=== PATIENT | male | born 1975 | race African-American/Black ===

== ENCOUNTER 2016-06-17 03:37 | Inpatient (IN) | payer MEDICAID ==
[~2016-06-17] VITALS: Ht 180.3 cm; Wt 78.0 kg
[2016-06-17] MEDS ORDERED: CLONIDINE (04:06)
[2016-06-17] MEDS ORDERED: HYDRALAZINE (04:06)
[2016-06-17] MEDS ORDERED: [UNRECOGNIZED DRUG - OTHER] (04:07)
[2016-06-17] MEDS ORDERED: ASPIRIN (04:08)
[2016-06-17] MEDS ORDERED: CARVEDILOL (04:08)
[2016-06-17] MEDS ORDERED: BUMETANIDE (04:09)
[2016-06-17] MEDS ORDERED: RENA-VITE (04:10)
[2016-06-17 04:13] LABS: HEMOGLOBIN 9.7 g/dL (13.7-18.0)
[2016-06-17 04:22] LABS: BLOOD UREA NITROGEN 97 mg/dL (7-18)
[2016-06-17 04:42] LABS: ASPARTATE AMINO TRANSFERASE 23 U/L (15-37)
[2016-06-17] MEDS ORDERED: HYDROcodone/APAP 5/325 TABLET ONE (04:56)
[2016-06-17] MEDS ORDERED: HYDROcodone/APAP 5/325 TABLET PO ONE (05:00)
[2016-06-17] MEDS ORDERED: ONDANSETRON 2MG/ML, 2ML IVPush PRN (05:30)
[2016-06-17] MEDS ORDERED: ACETAMINOPHEN 325 MG TABLET PO PRN (06:00)
[2016-06-17] MEDS ORDERED: POLYETHYLENE GLYCOL 17 GM PACKET PO PRN (06:00)
[2016-06-17] MEDS ORDERED: LABETALOL 5MG/ML, 20ML IV PRN (06:00)
[2016-06-17] MEDS ORDERED: DOCUSATE 100 MG CAPSULE PO PRN (06:00)
[2016-06-17] MEDS ORDERED: BISACODYL 10 MG SUPP PR PRN (06:00)
[2016-06-17] MEDS ORDERED: ONDANSETRON ODT 4 MG PO PRN (06:00)
[2016-06-17 06:50] VITALS: BP 170/114
[2016-06-17] MEDS: HEPARIN 5,000 UNITS/ML, 1ML SQ SCH ×3 (08:30→22:00)
[2016-06-17] MEDS: NICOTINE 14MG/24 HR PATCH.TD24 TD SCH (08:30)
[2016-06-17 09:47] VITALS: BP 173/73
[2016-06-17] MEDS: HYDROcodone/APAP 5/325 TABLET PO PRN ×2 (10:24→23:13)
[2016-06-17 13:17] VITALS: BP 184/119
[2016-06-17] MEDS: LABETALOL 20 MG/4 ML IV PRN (17:18)
[2016-06-17] MEDS ORDERED: SEVE800T8 PO (17:58)
[2016-06-17] MEDS ORDERED: BUME1TAB21 PO (17:58)
[2016-06-17] MEDS ORDERED: CLON0.2T PO (17:58)
[2016-06-17] MEDS ORDERED: HYDR100T25 PO (17:58)
[2016-06-17] MEDS ORDERED: ASPI-621 PO (17:58)
[2016-06-17] MEDS ORDERED: FOLI0.8T22 PO (17:58)
[2016-06-17] MEDS ORDERED: CARV12.52 PO (17:58)
[2016-06-17] MEDS ORDERED: ISOS10TA2 PO (17:58)
[2016-06-17 19:21] VITALS: BP 167/88
[2016-06-18 05:49] VITALS: BP 173/100
[2016-06-18] MEDS: NICOTINE 14MG/24 HR PATCH.TD24 TD SCH (06:00)
[2016-06-18] MEDS: HEPARIN 5,000 UNITS/ML, 1ML SQ SCH ×3 (06:00→22:00)
[2016-06-18] MEDS: LABETALOL 20 MG/4 ML IV PRN (06:27)
[2016-06-18 07:51] VITALS: BP 175/111
[2016-06-18] MEDS: FOLIC ACID PO SCH (09:30)
[2016-06-18] MEDS: VITAMIN B COMP W C PO SCH (09:30)
[2016-06-18] MEDS: CARVEDILOL 12.5 MG TABLET PO SCH ×2 (10:04→21:49)
[2016-06-18] MEDS: ASPIRIN 81 MG TABLET EC PO SCH (10:04)
[2016-06-18] MEDS: ISOSORBIDE DINITRATE 10 MG TABLET PO SCH ×3 (10:05→21:49)
[2016-06-18] MEDS: BUMETANIDE 1 MG TABLET PO SCH (10:05)
[2016-06-18] MEDS: HYDROcodone/APAP 5/325 TABLET PO PRN ×2 (10:13→21:49)
[2016-06-18] MEDS ORDERED: hydrALAzine 20 MG/ML, 1ML IV PRN (11:00)
[2016-06-18] MEDS ORDERED: OMNIPAQUE 350 MG/ML, 100ML BOTTLE ONE (11:39)
[2016-06-18] MEDS: SEVELAMER CARBONATE 800 MG PO SCH ×2 (12:00→16:23)
[2016-06-18 13:49] VITALS: BP 158/97
[2016-06-18] MEDS: METHOCARBAMOL 500 MG TABLET PO PRN ×2 (17:46→21:48)
[2016-06-18 18:29] VITALS: BP 166/84
[2016-06-19 02:08] VITALS: BP 161/86
[2016-06-19] MEDS: METHOCARBAMOL 500 MG TABLET PO PRN ×2 (02:16→08:44)
[2016-06-19] MEDS: NICOTINE 14MG/24 HR PATCH.TD24 TD SCH (04:53)
[2016-06-19] MEDS: HEPARIN 5,000 UNITS/ML, 1ML SQ SCH (04:53)
[2016-06-19 06:53] VITALS: BP 174/87
[2016-06-19] MEDS: SEVELAMER CARBONATE 800 MG PO SCH (08:00)
[2016-06-19] MEDS: BUMETANIDE 1 MG TABLET PO SCH (08:42)
[2016-06-19] MEDS: ISOSORBIDE DINITRATE 10 MG TABLET PO SCH (08:43)
[2016-06-19] MEDS: CARVEDILOL 12.5 MG TABLET PO SCH (08:43)
[2016-06-19] MEDS: ASPIRIN 81 MG TABLET EC PO SCH (08:43)
[2016-06-19] MEDS: FOLIC ACID PO SCH (08:44)
[2016-06-19] MEDS: VITAMIN B COMP W C PO SCH (08:44)
== END 2016-06-19 09:58 | disposition home or self-care (01) | DRG 640 ==
LOC: ED 05:11 → EDIP 05:14 → 4EST 06:55
PROVIDERS: ADMIT Internal Medicine; ATTEND Family Medicine
PROC: 5A1D60Z (ICD-10-PCS; principal; 2016-06-17)
DX: E87.70 Fluid overload, unspecified (principal); N18.6 End stage renal disease; I50.33 Acute on chronic diastolic (congestive) heart failure; I13.2 Hypertensive heart and chronic kidney disease with heart failure and with stage 5 chronic kidney disease, or end stage renal disease; E87.2 Acidosis; E83.51 Hypocalcemia; E88.09 Other disorders of plasma-protein metabolism, not elsewhere classified; F17.210 Nicotine dependence, cigarettes, uncomplicated; Z99.2 Dependence on renal dialysis; F12.10 Cannabis abuse, uncomplicated; D64.9 Anemia, unspecified; Z91.15 Patient's noncompliance with renal dialysis; Z91.19 Patient's noncompliance with other medical treatment and regimen; D63.1 Anemia in chronic kidney disease
CPT/HCPCS: 36415; 71010; 71275; 80053; 83690; 83880; 85025; 86704; 86706; 87340; 93005; 99285; Q9967; J0360

== ENCOUNTER 2016-07-25 16:13 | Inpatient (IN) | payer MEDICAID ==
[~2016-07-25] VITALS: Ht 180.3 cm; Wt 79.7 kg
[~2016-07-25 16:13] MED LIST: ASPI-621 PO; ASPIRIN; BUME1TAB21 PO; BUMETANIDE; CARV12.52 PO; CARVEDILOL; CLON0.2T PO; CLONIDINE; FOLI0.8T22 PO; HYDR100T25 PO; HYDRALAZINE; ISOS10TA2 PO; RENA-VITE; SEVE800T8 PO; [UNRECOGNIZED DRUG - OTHER]
[2016-07-25] MEDS ORDERED: SODIUM CHLORIDE FLUSH 10ML SYR IVF ONE (16:30)
[2016-07-25] MEDS ORDERED: FOLI0.8T22 PO (16:58)
[2016-07-25] MEDS ORDERED: SIMV10TA3 PO (16:58)
[2016-07-25] MEDS ORDERED: BUME2TAB PO (16:58)
[2016-07-25] MEDS ORDERED: CARV12.52 PO (16:58)
[2016-07-25 17:02] LABS: ASPARTATE AMINO TRANSFERASE 21 U/L (15-37); BLOOD UREA NITROGEN 75 mg/dL (7-18)
[2016-07-25 17:07] LABS: IS PT STATUS REG ER OR PRE ER? YES
[2016-07-25 17:10] LABS: DIFF TOTAL CELLS COUNTED 100 CELL DIFF
[2016-07-25 17:25] LABS: VERIFY COUNTS? YES
[2016-07-25] MEDS ORDERED: TEMAZEPAM 15 MG CAPSULE PO PRN (20:00)
[2016-07-25] MEDS ORDERED: ONDANSETRON 2MG/ML, 2ML IVPush PRN (20:00)
[2016-07-25] MEDS ORDERED: DOCUSATE 100 MG CAPSULE PO PRN (20:00)
[2016-07-25 20:19] LABS: IS PT STATUS REG ER OR PRE ER? YES
[2016-07-25] MEDS ORDERED: SIMVASTATIN 10 MG TABLET PO SCH (21:00)
[2016-07-26 00:29] VITALS: BP 164/90
[2016-07-26] MEDS: HEPARIN 5,000 UNITS/ML, 1ML SQ SCH ×2 (00:44→09:34)
[2016-07-26] MEDS: BUMETANIDE 1 MG TABLET PO SCH ×2 (00:49→09:34)
[2016-07-26] MEDS: CARVEDILOL 12.5 MG TABLET PO SCH ×2 (00:50→09:35)
[2016-07-26] MEDS: ISOSORBIDE DINITRATE 10 MG TABLET PO SCH ×3 (00:50→15:07)
[2016-07-26 02:37] LABS: BLOOD UREA NITROGEN 43 mg/dL (7-18)
[2016-07-26 03:00] VITALS: BP 157/84
[2016-07-26 03:02] LABS: IS PT STATUS REG ER OR PRE ER? NO
[2016-07-26 08:35] LABS: IS PT STATUS REG ER OR PRE ER? NO
[2016-07-26] MEDS ORDERED: MULTIVITAMIN 1 TABLET PO SCH (09:00)
[2016-07-26 09:35] VITALS: BP 144/90
[2016-07-26] MEDS ORDERED: SEVELAMER 800MG TABLET PO SCH (12:00)
[2016-07-26] MEDS ORDERED: ASPI-621 PO (15:37)
== END 2016-07-26 16:10 | disposition home or self-care (01) | DRG 280 ==
LOC: ED 18:08 → EDIP 18:11 → 5SO 23:50 → DCLOUNGE 07-26 15:30
PROVIDERS: ADMIT Internal Medicine
PROC: 5A1D60Z (ICD-10-PCS; principal; 2016-07-25)
DX: I13.2 Hypertensive heart and chronic kidney disease with heart failure and with stage 5 chronic kidney disease, or end stage renal disease (principal); I21.4 Non-ST elevation (NSTEMI) myocardial infarction; N18.6 End stage renal disease; I50.43 Acute on chronic combined systolic (congestive) and diastolic (congestive) heart failure; E44.0 Moderate protein-calorie malnutrition; E87.70 Fluid overload, unspecified; Z99.2 Dependence on renal dialysis; Z91.19 Patient's noncompliance with other medical treatment and regimen; Z82.49 Family history of ischemic heart disease and other diseases of the circulatory system; I27.2 Other secondary pulmonary hypertension; E83.51 Hypocalcemia; D63.1 Anemia in chronic kidney disease; F17.210 Nicotine dependence, cigarettes, uncomplicated; I16.0 Hypertensive urgency
CPT/HCPCS: 36415; 71010; 80048; 80053; 83880; 84484; 85025; 93005

== ENCOUNTER 2016-10-13 10:32 | Emergency (ER) | payer MEDICAID ==
[~2016-10-13] VITALS: Ht 185.4 cm; Wt 80.0 kg
[~2016-10-13 10:32] MED LIST changes: +BUME2TAB PO; +SIMV10TA3 PO
[2016-10-13] MEDS ORDERED: SODIUM CHLORIDE 0.9% 1,000 ML IV ONE (10:47)
[2016-10-13] MEDS ORDERED: KETOROLAC 30 MG/1 ML IVPush ONE (11:00)
[2016-10-13] MEDS ORDERED: ONDANSETRON 2MG/ML, 2ML IVPush ONE (11:00)
[2016-10-13] MEDS ORDERED: MORPHINE SULFATE 4 MG/ML, 1ML IVPush PRN (11:00)
[2016-10-13 11:19] LABS: ASPARTATE AMINO TRANSFERASE 22 U/L (15-37); BLOOD UREA NITROGEN 21 mg/dL (7-18)
[2016-10-13] MEDS ORDERED: KETOROLAC 30 MG/1 ML ONE (11:31)
[2016-10-13] MEDS ORDERED: MORPHINE SULFATE 4 MG/ML, 1ML ONE (11:31)
[2016-10-13] MEDS ORDERED: ONDANSETRON 2MG/ML, 2ML ONE (11:31)
[2016-10-13] MEDS ORDERED: CALC200T37 PO (13:11)
[2016-10-13 14:31] VITALS: BP 143/90
== END 2016-10-13 14:58 | disposition home or self-care (01) ==
LOC: ED 12:08
DX: N45.1 Epididymitis (principal); I13.2 Hypertensive heart and chronic kidney disease with heart failure and with stage 5 chronic kidney disease, or end stage renal disease; N18.6 End stage renal disease; I50.9 Heart failure, unspecified; Z99.2 Dependence on renal dialysis
CPT/HCPCS: 36415; 74000; 76870; 80053; 81001; 85025; 85610; 96361; 96374; 96375; 99285; J1885; J2405; J7030

== ENCOUNTER 2016-11-01 05:26 | Inpatient (IN) | payer MEDICAID ==
[~2016-11-01] VITALS: Ht 180.3 cm; Wt 75.3 kg
[~2016-11-01 05:26] MED LIST changes: +CALC200T37 PO
[2016-11-01] MEDS ORDERED: ONDANSETRON 2MG/ML, 2ML ONE (05:45)
[2016-11-01] MEDS ORDERED: MORPHINE SULFATE 4 MG/ML, 1ML ONE ×2 (05:45→06:56)
[2016-11-01] MEDS: MORPHINE SULFATE 4 MG/ML, 1ML IVPush PRN ×2 (05:52→06:58)
[2016-11-01 05:57] LABS: HEMATOCRIT 34.6 % (39.2-51.8); HEMOGLOBIN 11.4 g/dL (13.7-18.0); WHITE BLOOD COUNT 6.5 x10^3/uL (3.4-10)
[2016-11-01] MEDS ORDERED: ONDANSETRON 2MG/ML, 2ML IVPush ONE (06:00)
[2016-11-01] MEDS ORDERED: SODIUM CHLORIDE FLUSH 10ML SYR IVF ONE (06:00)
[2016-11-01 06:02] LABS: BLOOD UREA NITROGEN 33 mg/dL (7-18)
[2016-11-01] MEDS ORDERED: SODIUM CHLORIDE FLUSH 10ML SYR IVF PRN (07:30)
[2016-11-01 09:42] VITALS: BP_SYST 157; BP_SYST 158; BP_DIAS 103; BP_DIAS 96
[2016-11-01] MEDS ORDERED: ONDANSETRON 2MG/ML, 2ML IVPush PRN (11:00)
[2016-11-01] MEDS ORDERED: BISACODYL 10 MG SUPP PR PRN (11:00)
[2016-11-01] MEDS ORDERED: DOCUSATE 100 MG CAPSULE PO PRN (11:00)
[2016-11-01] MEDS ORDERED: POLYETHYLENE GLYCOL 17 GM PACKET PO PRN (11:00)
[2016-11-01] MEDS: morphine SULFATE 10 MG/ML, 1ML IVPush PRN ×4 (11:14→21:40)
[2016-11-01] MEDS: HEPARIN 5,000 UNITS/ML, 1ML SQ SCH ×2 (11:18→20:00)
[2016-11-01] MEDS ORDERED: FUROSEMIDE 40 MG/4 ML IV ONE (11:30)
[2016-11-01 12:01] LABS: IS PT STATUS REG ER OR PRE ER? NO
[2016-11-01 13:09] VITALS: BP 164/100
[2016-11-01 17:09] LABS: IS PT STATUS REG ER OR PRE ER? NO
[2016-11-01] MEDS: ISOSORBIDE DINITRATE 10 MG TABLET PO SCH ×2 (18:17→21:44)
[2016-11-01 19:27] VITALS: BP 161/89
[2016-11-01] MEDS ORDERED: BUMETANIDE 0.25 MG/ML, 4ML IV SCH (21:00)
[2016-11-01] MEDS ORDERED: SIMVASTATIN 10 MG TABLET PO SCH (21:00)
[2016-11-01] MEDS ORDERED: BUMETANIDE 1 MG TABLET PO SCH (21:00)
[2016-11-02 01:30] VITALS: BP 145/71
[2016-11-02] MEDS: morphine SULFATE 10 MG/ML, 1ML IVPush PRN ×3 (03:43→09:10)
[2016-11-02] MEDS: HEPARIN 5,000 UNITS/ML, 1ML SQ SCH ×2 (04:00→12:00)
[2016-11-02 05:12] LABS: HEMATOCRIT 30.2 % (39.2-51.8); HEMOGLOBIN 9.9 g/dL (13.7-18.0); WHITE BLOOD COUNT 5.4 x10^3/uL (3.4-10)
[2016-11-02 05:39] LABS: ASPARTATE AMINO TRANSFERASE 13 U/L (15-37); BLOOD UREA NITROGEN 48 mg/dL (7-18)
[2016-11-02] MEDS ORDERED: DARBEPOETIN 100 MCG/ML SQ SCH (07:30)
[2016-11-02 08:21] VITALS: BP 160/88
[2016-11-02] MEDS ORDERED: REGADENOSON 0.4 MG/5 ML SYRINGE ONE (08:50)
[2016-11-02] MEDS ORDERED: ASPIRIN 81 MG TABLET EC PO SCH (09:00)
[2016-11-02] MEDS ORDERED: BUMETANIDE 0.25 MG/ML, 10ML IV SCH (09:00)
[2016-11-02] MEDS ORDERED: ACETAMINOPHEN 325 MG TABLET PO PRN (09:00)
[2016-11-02 10:06] LABS: HEP B SURF. AB 20.2 mIU/mL (0.0-10.0)
== END 2016-11-02 16:31 | disposition left against medical advice (07) | DRG 291 ==
LOC: ED 05:46 → EDIP 07:17 → 5SO 09:29 → ICU 11-02 15:45
PROVIDERS: ADMIT Internal Medicine; ATTEND Internal Medicine
PROC: 5A1D00Z (ICD-10-PCS; principal; 2016-11-02)
DX: I13.2 Hypertensive heart and chronic kidney disease with heart failure and with stage 5 chronic kidney disease, or end stage renal disease (principal); I50.43 Acute on chronic combined systolic (congestive) and diastolic (congestive) heart failure; N18.6 End stage renal disease; I25.2 Old myocardial infarction; D63.1 Anemia in chronic kidney disease; E78.5 Hyperlipidemia, unspecified; F12.90 Cannabis use, unspecified, uncomplicated; F17.210 Nicotine dependence, cigarettes, uncomplicated; F40.240 Claustrophobia; Z53.21 Procedure and treatment not carried out due to patient leaving prior to being seen by health care provider; Z53.29 Procedure and treatment not carried out because of patient's decision for other reasons; I25.10 Atherosclerotic heart disease of native coronary artery without angina pectoris; Z82.0 Family history of epilepsy and other diseases of the nervous system; Z82.49 Family history of ischemic heart disease and other diseases of the circulatory system; Z99.2 Dependence on renal dialysis; Z79.82 Long term (current) use of aspirin; Z79.899 Other long term (current) drug therapy; Z91.010 Allergy to peanuts; Z91.013 Allergy to seafood; Z91.018 Allergy to other foods
CPT/HCPCS: 36415; 71010; 78452; 80048; 80053; 81001; 82040; 83735; 83880; 84100; 84484; 85025; 85379; 86704; 86705; 86706; 87086; 87340; 93005; 93306; 96374; 96375; 96376; J0881; J1940; J2405; J2785; J3490; A9502; C9898; J2270